=== PATIENT | female | born 1985 | race Caucasian/White ===

== ENCOUNTER 2019-01-11 19:45 | Emergency (ER) | payer SELFPAY ==
[~2019-01-11] VITALS: Ht 165.1 cm; Wt 50.0 kg
[2019-01-11 19:47] VITALS: BP 157/112
== END 2019-01-11 23:37 | disposition left against medical advice (07) ==
LOC: ER 20:42
DX: Z53.21 Procedure and treatment not carried out due to patient leaving prior to being seen by health care provider (principal)

== ENCOUNTER 2019-04-18 15:33 | Emergency (ER) | payer SELFPAY ==
[~2019-04-18] VITALS: Ht 167.6 cm; Wt 66.6 kg
[2019-04-18] MEDS ORDERED: ACETAMINOPHEN 325MG TABLET PO STA (16:02)
[2019-04-18] MEDS ORDERED: MORPHINE SULFATE 4 MG/ML CPJ (NOT FOR IM USE) IV STA (16:02)
[2019-04-18] MEDS ORDERED: ONDANSETRON HCL 4MG/2ML INJ IV STA (16:02)
[2019-04-18] MEDS ORDERED: KETOROLAC 30MG/ML VIAL IV STA (16:02)
[2019-04-18] MEDS ORDERED: CEFTRIAXONE 1 G PREMIX 50 ML IV ONE (16:15)
[2019-04-18] MEDS ORDERED: SODIUM CHLORIDE 0.9% 1000ML BAG (SEPSIS BOLUS) IV ONE (16:15)
[2019-04-18 16:26] LABS: BASOPHILS % 0.2 % (0.0-2.0); HEMATOCRIT. 34.5 % (36.0-48.0); HEMOGLOBIN. 11.9 g/dL (12.0-16.0); LYMPHOCYTES % 11.3 % (20.0-50.0); MEAN CORPUSCULAR HEMOGLOBIN 30.8 pg (28.0-32.0); MEAN CORPUSCULAR VOLUME 89.3 fL (81.0-99.0); MEAN PLATELET VOLUME 7.5 fl (7.4-10.4); MONOCYTES % 9.1 % (2.0-8.0); NEUTROPHILS % 79.4 % (40.0-76.0); PLATELET 430 x1000/uL (130-400); RED BLOOD CELL COUNT 3.86 mill/uL (4.2-5.4); RED CELL DISTRIBUTION WIDTH 11.9 % (11.6-14.6)
[2019-04-18 16:30] LABS: CLARITY URINE CLEAR (CLEAR); COLOR URINE YELLOW (YELLOW); KETONES URINE NEGATIVE (NEGATIVE); LEUKOCYTE ESTERASE URINE 1+ (NEGATIVE); NITRITE URINE NEGATIVE (NEGATIVE); OCCULT BLOOD URINE 1+ (NEGATIVE); PROTEIN URINE NEGATIVE (NEGATIVE); SPECIFIC GRAVITY URINE 1.026 (1.005-1.030); UROBILINOGEN URINE 0.2 E.U./dL (0.2-1.0)
[2019-04-18 16:31] LABS: CHLORIDE 93 mEq/L (98-107)
[2019-04-18] MEDS ORDERED: INSULIN REGULAR (HUMULIN R) UD 100 UNITS/ML SYR IV ONE (18:15)
[2019-04-18] MEDS ORDERED: INSULIN REGULAR (HUMULIN R) 300UNITS/3ML IV NR (19:45)
[2019-04-18 20:30] VITALS: BP 108/63
== END 2019-04-18 20:30 | disposition home or self-care (01) ==
LOC: ER 16:28
DX: N12 Tubulo-interstitial nephritis, not specified as acute or chronic (principal)
CPT/HCPCS: 36415; 80053; 81003; 81025; 82962; 83605; 83690; 85025; 87040; 87077; 87086; 87186; 96365; 96375; 99283; J0696; J1815; J1885; J2270; J2405; J7030; Z7610

== ENCOUNTER 2019-06-02 15:17 | Inpatient (IN) | payer OTHER, MEDICAID ==
[~2019-06-02] VITALS: Ht 167.6 cm; Wt 68.0 kg
[2019-06-02] MEDS ORDERED: SODIUM CHLORIDE 0.9% 1,000 ML IV ONE (16:05)
[2019-06-02] MEDS ORDERED: LORAZEPAM 2MG/ML CPJ IV ONE (16:15)
[2019-06-02 16:42] LABS: CLARITY URINE CLOUDY (CLEAR); COLOR URINE YELLOW (YELLOW); KETONES URINE 1+ (NEGATIVE); LEUKOCYTE ESTERASE URINE NEGATIVE (NEGATIVE); NITRITE URINE NEGATIVE (NEGATIVE); OCCULT BLOOD URINE NEGATIVE (NEGATIVE); PROTEIN URINE NEGATIVE (NEGATIVE); SPECIFIC GRAVITY URINE 1.036 (1.005-1.030); UROBILINOGEN URINE 0.2 E.U./dL (0.2-1.0)
[2019-06-02 16:43] LABS: HEMOGLOBIN. 13.1 g/dL (12.0-16.0); MEAN CORPUSCULAR HEMOGLOBIN 31.2 pg (28.0-32.0); MEAN CORPUSCULAR VOLUME 90.6 fL (81.0-99.0); MEAN PLATELET VOLUME 8.5 fl (7.4-10.4); PLATELET 262 x1000/uL (130-400)
[2019-06-02 16:48] LABS: CHLORIDE 96 mEq/L (98-107)
[2019-06-02] MEDS ORDERED: ACETAMINOPHEN 325MG TABLET PO STA (17:09)
[2019-06-02] MEDS ORDERED: SODIUM CHLORIDE 0.9% 1000ML BAG (SEPSIS BOLUS) IV ONE (17:15)
[2019-06-02 17:20] LABS: *BARBITURATES SCREEN URINE NEGATIVE (NEGATIVE); *BENZODIAZEPINES SCREEN URINE NEGATIVE (NEGATIVE); *COCAINE SCREEN URINE NEGATIVE (NEGATIVE); METHADONE URINE SCREEN NEGATIVE (NEGATIVE)
[2019-06-02 17:21] LABS: *AMPHETAMINES SCREEN URINE PRESUMTIVE POSITIVE (NEGATIVE); CANNABINOID URINE SCREEN NEGATIVE (NEGATIVE); OPIATES URINE SCREEN NEGATIVE (NEGATIVE); PHENCYCLIDINE URINE SCREEN NEGATIVE (NEGATIVE)
[2019-06-02 17:24] LABS: HCG SCREEN NEGATIVE
[2019-06-02] MEDS ORDERED: VANCOMYCIN 1 G PREMIX 200 ML IV ONE (17:30)
[2019-06-02] MEDS ORDERED: PIPERACILLIN/TAZ 3.375G PREMIX 50 ML IV ONE (17:30)
[2019-06-02 18:07] LABS: PLATELET ESTIMATE NORMAL
[2019-06-02] MEDS ORDERED: IBUPROFEN 400MG TABLET PO ONE (19:45)
[2019-06-02 21:00] VITALS: BP 128/76
[2019-06-02 21:17] VITALS: BP 128/76
[2019-06-02] MEDS ORDERED: GUAIFENESIN 200MG/10ML SUGAR FREE UDC PO PRN (22:00)
[2019-06-02] MEDS ORDERED: MAGNESIUM/ALUMINUM HYDROXIDE/SIMETHICONE 30ML UDC PO PRN (22:00)
[2019-06-02] MEDS ORDERED: IPRATROPIUM/ALBUTEROL 0.5-3(2.5)MG/3ML NEB INH PRN (22:00)
[2019-06-02] MEDS ORDERED: DIPHENHYDRAMINE 50MG/ML VIAL IV PRN (22:00)
[2019-06-02] MEDS ORDERED: HYDROCODONE/ACETAMINOPHEN 10/325MG TABLET PO PRN (22:00)
[2019-06-02] MEDS ORDERED: ACETAMINOPHEN 650MG SUPP PR PRN (22:00)
[2019-06-02] MEDS ORDERED: CLONIDINE 0.1MG TABLET PO PRN (22:00)
[2019-06-02] MEDS ORDERED: ONDANSETRON HCL 4MG/2ML INJ IV PRN (22:00)
[2019-06-02] MEDS ORDERED: DOCUSATE SODIUM 100MG CAPSULE PO PRN (22:00)
[2019-06-02] MEDS ORDERED: NA PHOS,M-B/NA PHOS,DI-BA ENEMA 118ML PR PRN (22:00)
[2019-06-02] MEDS ORDERED: ACETAMINOPHEN 650MG/20.3ML UDC GT PRN (22:00)
[2019-06-02] MEDS ORDERED: HYDROCODONE/ACETAMINOPHEN 5/325MG TABLET PO PRN (22:00)
[2019-06-02] MEDS: SODIUM CHLORIDE 0.9% 1,000 ML IV SCH (23:39)
[2019-06-02] MEDS: PIPERACILLIN/TAZOBACTAM 3.375 G in DEXT 5% WATER 100 ML IV SCH (23:39)
[2019-06-02] MEDS: SODIUM CHLORIDE 0.9% INJ 3ML FLUSH IVF SCH (23:40)
[2019-06-02] MEDS: ENOXAPARIN 40MG/0.4ML SYR SUBCUT SCH (23:40)
[2019-06-03] VITALS: BP 92/59
[2019-06-03 00:04] LABS: HEMATOCRIT. 32.4 % (36.0-48.0); HEMOGLOBIN. 11.1 g/dL (12.0-16.0); MEAN CORPUSCULAR HEMOGLOBIN 30.7 pg (28.0-32.0); MEAN CORPUSCULAR VOLUME 89.3 fL (81.0-99.0); MEAN PLATELET VOLUME 8.4 fl (7.4-10.4); PLATELET 213 x1000/uL (130-400); RED BLOOD CELL COUNT 3.63 mill/uL (4.2-5.4)
[2019-06-03 00:08] LABS: CHLORIDE 104 mEq/L (98-107)
[2019-06-03 03:17] LABS: PLATELET ESTIMATE NORMAL
[2019-06-03 04:00] VITALS: BP 111/72
[2019-06-03] MEDS: SODIUM CHLORIDE 0.9% INJ 3ML FLUSH IVF SCH ×2 (05:45→17:58)
[2019-06-03] MEDS: PIPERACILLIN/TAZOBACTAM 3.375 G in DEXT 5% WATER 100 ML IV SCH ×3 (05:46→17:58)
[2019-06-03 08:00] VITALS: BP 123/73
[2019-06-03] MEDS: PHENAZOPYRIDINE HCL 100MG TABLET PO SCH ×2 (10:05→17:57)
[2019-06-03] MEDS: SODIUM CHLORIDE 0.9% 1,000 ML IV SCH ×2 (10:10→17:58)
[2019-06-03 12:00] VITALS: BP 127/79
[2019-06-03] MEDS: ACETAMINOPHEN 325MG TABLET PO PRN ×2 (12:16→21:13)
[2019-06-03 16:00] VITALS: BP 109/68
[2019-06-03] MEDS ORDERED: POTASSIUM CHLORIDE 20MEQ TABLET SR PO NR (17:30)
[2019-06-03 19:42] LABS: HEMATOCRIT. 33.4 % (36.0-48.0); MEAN CORPUSCULAR HEMOGLOBIN 30.3 pg (28.0-32.0); MEAN CORPUSCULAR VOLUME 91.5 fL (81.0-99.0); MEAN PLATELET VOLUME 8.7 fl (7.4-10.4); PLATELET 222 x1000/uL (130-400); RED BLOOD CELL COUNT 3.64 mill/uL (4.2-5.4); RED CELL DISTRIBUTION WIDTH 13.3 % (11.6-14.6)
[2019-06-03 19:57] LABS: CHLORIDE 103 mEq/L (98-107)
[2019-06-03 20:00] VITALS: BP 121/70
[2019-06-03] MEDS: ENOXAPARIN 40MG/0.4ML SYR SUBCUT SCH (21:12)
[2019-06-03 22:26] LABS: PLATELET ESTIMATE NORMAL
[2019-06-04] VITALS: BP 117/72
[2019-06-04] MEDS: PIPERACILLIN/TAZOBACTAM 3.375 G in DEXT 5% WATER 100 ML IV SCH ×4 (02:42→18:47)
[2019-06-04] MEDS: SODIUM CHLORIDE 0.9% INJ 3ML FLUSH IVF SCH ×4 (02:42→21:53)
[2019-06-04] MEDS: SODIUM CHLORIDE 0.9% 1,000 ML IV SCH ×3 (03:10→21:54)
[2019-06-04 04:00] VITALS: BP 113/74
[2019-06-04] MEDS: PHENAZOPYRIDINE HCL 100MG TABLET PO SCH ×3 (06:12→18:47)
[2019-06-04] MEDS ORDERED: DEXTROSE 50% WATER 50ML SYRINGE IV PRN (06:45)
[2019-06-04] MEDS: BLOOD SUGAR DIAGNOSTIC STRIP TEST SCH ×4 (07:17→21:53)
[2019-06-04] MEDS: INSULIN LISPRO 100 UNITS/ML SUBCUT SCH ×4 (07:23→22:07)
[2019-06-04 08:00] VITALS: BP 120/82
[2019-06-04 12:00] VITALS: BP 132/84
[2019-06-04] MEDS: METFORMIN HCL 500MG TABLET PO SCH ×2 (12:43→18:47)
[2019-06-04 16:00] VITALS: BP 127/83
[2019-06-04 16:08] LABS: CHLORIDE 107 mEq/L (98-107); HEMATOCRIT. 29.8 % (36.0-48.0); MEAN CORPUSCULAR HEMOGLOBIN 30.5 pg (28.0-32.0); MEAN PLATELET VOLUME 8.8 fl (7.4-10.4); PLATELET 204 x1000/uL (130-400); RED BLOOD CELL COUNT 3.27 mill/uL (4.2-5.4); RED CELL DISTRIBUTION WIDTH 13.2 % (11.6-14.6)
[2019-06-04 16:40] LABS: PLATELET ESTIMATE NORMAL
[2019-06-04 20:00] VITALS: BP 120/79
[2019-06-04] MEDS: ENOXAPARIN 40MG/0.4ML SYR SUBCUT SCH (21:50)
[2019-06-05 00:19] VITALS: BP 120/76
[2019-06-05] MEDS: PIPERACILLIN/TAZOBACTAM 3.375 G in DEXT 5% WATER 100 ML IV SCH ×4 (00:29→18:31)
[2019-06-05 04:00] VITALS: BP 123/20
[2019-06-05] MEDS: BLOOD SUGAR DIAGNOSTIC STRIP TEST SCH ×3 (06:13→17:07)
[2019-06-05] MEDS: SODIUM CHLORIDE 0.9% INJ 3ML FLUSH IVF SCH ×2 (06:13→13:06)
[2019-06-05] MEDS: INSULIN LISPRO 100 UNITS/ML SUBCUT SCH ×3 (06:24→18:42)
[2019-06-05] MEDS ORDERED: LEVOFLOXACIN 500MG TABLET PO NR (07:30)
[2019-06-05 08:00] VITALS: BP 107/70
[2019-06-05] MEDS: METFORMIN HCL 500MG TABLET PO SCH ×2 (09:05→18:31)
[2019-06-05] MEDS: PHENAZOPYRIDINE HCL 100MG TABLET PO SCH ×3 (09:05→18:31)
[2019-06-05 12:00] VITALS: BP 127/81
[2019-06-05 16:00] VITALS: BP 143/91
[2019-06-05] MEDS ORDERED: LEVO500T2 MT (16:17)
[2019-06-05] MEDS ORDERED: METF-414 MT (16:17)
[2019-06-05 18:57] VITALS: BP 143/91
== END 2019-06-05 20:32 | disposition home or self-care (01) | DRG 720 ==
LOC: ER 15:17 → 5WST 18:06 → EDBEDREQ 18:24 → EDBEDREQTM 18:24 → ENRESERV 19:35
PROVIDERS: ADMIT Family Medicine; ATTEND Family Medicine
DX: A41.9 Sepsis, unspecified organism (principal); E87.1 Hypo-osmolality and hyponatremia; E11.9 Type 2 diabetes mellitus without complications; N39.0 Urinary tract infection, site not specified; N32.89 Other specified disorders of bladder; F32.9 Major depressive disorder, single episode, unspecified; F15.90 Other stimulant use, unspecified, uncomplicated; Z87.891 Personal history of nicotine dependence; Z79.899 Other long term (current) drug therapy
CPT/HCPCS: 36415; 71045; 76770; 80048; 80305; 81003; 82962; 83036; 83605; 84145; 84484; 84703; 87077; 87186; 93005; 96374; 96375; 99291; J1650; J1815; J2060; J2543; J3370; J7030; J7060